=== PATIENT | female | born 1990 | race Caucasian/White ===

== ENCOUNTER 2020-06-03 14:49 | Outpatient (REF) | payer BC, SELFPAY ==
--- NOTE | 2020-06-03 13:30 | PAPFT_PTH ---
PATIENT: Malu Ambriz LOC: [facility] U#:[id number] AGE/SX: 30/F ROOM: RE06/03/[address]: Oxana Connelly : 1990 BED: DIS: 06/03/2020 SPEC #: [id number] RECD: 06/06/20 13:03 STATUS: MERCEDES REQ #: [id number] KULDEEP: 06/03/20 13:[address]: Oxana Connelly DEPT: [facility] Cytology RECD BY: Paula Hamlin ENTERED: 06/06/20 13:03 SP TYPE: PAPFT OTHR DR: Steven Rajput Tissues: 1 - CX/ENDOCX FOR PAP SMEARS Procedures: PAP THIN PREP/[facility] Screening Comments: [id number] ([facility]) (CHLAMYDIA/GC)
[2020-06-03 21:31] LABS: Calculated LDL 148 mg/dL (<100); Cholesterol 250 mg/dL (<200); HDL Cholesterol 55 mg/dL (40-60); Triglyceride 238 mg/dL (<150)
[2020-06-03 21:33] LABS: Hemoglobin A1C 5.5 % (<5.7)
[2020-06-27 16:09] LABS: Chlamydia Result Negative (Negative); GC Result Negative (Negative)
== END 2020-06-03 15:09 ==
LOC: NCHCN 14:49
PROVIDERS: PCP Family Medicine; Visit Provider Registered Nurse
DX: Z00.00 Encounter for general adult medical examination without abnormal findings (principal); E66.01 Morbid (severe) obesity due to excess calories; I10 Essential (primary) hypertension; Z12.72 Encounter for screening for malignant neoplasm of vagina; Z11.3 Encounter for screening for infections with a predominantly sexual mode of transmission
CPT/HCPCS: 80061; 87491; 87591; 88142; 83036; 87624

== ENCOUNTER 2021-12-13 14:41 | Outpatient (REF) | payer OTHER, SELFPAY ==
[2021-12-13 15:28] LABS: ALT 77 U/L (14-59); AST 24 U/L (15-37); Albumin 4.3 g/dL (3.4-5.0); Alkaline Phosphatase 91 U/L (46-116); BUN 14 mg/dL (7-18); Bilirubin, Total 0.3 mg/dL (0.2-1.0); CREATININE 0.7 mg/dL (0.55-1.02); Calcium 8.7 mg/dL (8.5-10.1); Calculated LDL 122 mg/dL (<100); Chloride 102 mmol/L (98-107); Cholesterol 197 mg/dL (<200); Glucose 103 mg/dL (74-106); HDL Cholesterol 42 mg/dL (40-60); Potassium 4.1 mmol/L (3.5-5.1); Sodium 140 mmol/L (136-145); Triglyceride 166 mg/dL (<150)
== END 2021-12-13 14:42 | disposition home or self-care (01) ==
LOC: NCHCN 14:41
PROVIDERS: PCP Family Medicine; Visit Provider Registered Nurse
DX: I10 Essential (primary) hypertension (principal); E66.01 Morbid (severe) obesity due to excess calories
CPT/HCPCS: 80053; 80061

== ENCOUNTER 2022-12-13 12:37 | Outpatient (REF) | payer BC, SELFPAY ==
[2022-12-13 15:41] LABS: Anion Gap 6.7 mmol/L (3-11); BUN 13 mg/dL (7-18); CO2 29.3 mmol/L (21.0-32.0); CREATININE 0.7 mg/dL (0.55-1.02); Calcium 9.2 mg/dL (8.5-10.1); Chloride 102 mmol/L (98-107); Estimated GFR 117.04 (mL/min/1.73m2); Glucose 106 mg/dL (74-106); Potassium 4.4 mmol/L (3.5-5.1); Sodium 138 mmol/L (136-145)
== END 2022-12-13 12:38 | disposition home or self-care (01) ==
LOC: NCHCN 12:37
PROVIDERS: PCP Family Medicine; Visit Provider Registered Nurse
DX: I10 Essential (primary) hypertension (principal)
CPT/HCPCS: 80048

== ENCOUNTER 2023-11-21 09:23 | Outpatient (REF) | payer BC, SELFPAY ==
[2023-11-21 14:54] LABS: HCT 42.7 % (36.0-46.0); MCH 30.8 pg (27.0-33.0); MCHC 32.8 % (32.0-36.0); MCV 94 fL (80-95); MPV 11.3 fL (8.0-11.0); Platelet Count 251 10^3/uL (130-400); RBC 4.55 10^6/uL (3.93-5.22); RDW 12.5 % (11.7-14.6); RDW-SD 43.3 fL; WBC 9.52 10^3/uL (4.4-10.8)
[2023-11-21 15:09] LABS: Hemoglobin A1C 5.3 % (<5.7)
[2023-11-21 15:38] LABS: ALT 25 U/L (14-59); AST 21 U/L (15-37); Alkaline Phosphatase 64 U/L (46-116); Anion Gap 7.3 mmol/L (3-11); BUN 14 mg/dL (7-18); Bilirubin, Total 0.4 mg/dL (0.2-1.0); CO2 28.7 mmol/L (21.0-32.0); CREATININE 0.8 mg/dL (0.55-1.02); Calcium 8.9 mg/dL (8.5-10.1); Calculated LDL 109 mg/dL (<100); Chloride 103 mmol/L (98-107); Cholesterol 197 mg/dL (<200); Estimated GFR 99.09 (mL/min/1.73m2); Glucose 100 mg/dL (74-106); HDL Cholesterol 63 mg/dL (40-60); Potassium 4.5 mmol/L (3.5-5.1); Sodium 139 mmol/L (136-145); TSH 1.75 uIU/Ml (0.36-3.74); Total Protein 7.9 g/dL (6.4-8.2); Triglyceride 125 mg/dL (<150)
== END 2023-11-21 09:24 | disposition home or self-care (01) ==
LOC: NCHCN 09:23
PROVIDERS: Visit Provider Family Medicine
DX: I10 Essential (primary) hypertension (principal); L65.9 Nonscarring hair loss, unspecified; E66.01 Morbid (severe) obesity due to excess calories; R53.83 Other fatigue
CPT/HCPCS: 80053; 80061; 85027; 83036; 84439; 84443

== ENCOUNTER 2024-07-16 13:55 | Outpatient (REF) | payer BC, SELFPAY ==
--- NOTE | 2024-07-16 11:30 | PAPFT_PTH ---
PATIENT: Malu Ambriz LOC: [facility]#:[id number] AGE/SX: 34/F ROOM: RE07/16/[address]: OSWALDO: 1990 BED: DIS: 07/16/2024 SPEC #: [id number] RECD: 07/16/24 17:13 STATUS: VIVIENNELawrence HICKS #: [id number] KULDEEP: 07/16/24 11:[address]: Martha Dumont DEPT: [facility] Cytology RECD BY: Paula Hamlin ENTERED: 07/16/24 17:14 SP TYPE: PAPFT OTHR DR: Unknown,Unknown Tissues: 1 - CX/ENDOCX FOR PAP SMEARS Procedures: PAP THIN PREP/[facility] Screening HPV DNA PROBE Comments: [id number] (HPV 16 & 18/45)
[2024-07-16 14:50] LABS: ALT 31 U/L (14-59); AST 26 U/L (15-37); Albumin 4.7 g/dL (3.4-5.0); Alkaline Phosphatase 73 U/L (46-116); Anion Gap 8.4 mmol/L (3-11); BUN 12 mg/dL (7-18); CO2 31.6 mmol/L (21.0-32.0); CREATININE 0.9 mg/dL (0.55-1.02); Calcium 9.5 mg/dL (8.5-10.1); Chloride 101 mmol/L (98-107); Glucose 109 mg/dL (74-106); Potassium 4.1 mmol/L (3.5-5.1); Sodium 141 mmol/L (136-145); Total Protein 8.9 g/dL (6.4-8.2)
== END 2024-07-16 13:56 | disposition home or self-care (01) ==
LOC: NCHCN 13:55
PROVIDERS: Visit Provider Family Medicine
DX: Z12.4 Encounter for screening for malignant neoplasm of cervix (principal); F11.21 Opioid dependence, in remission
CPT/HCPCS: 80053; 88142; 87624